=== PATIENT | male | born 1965 | race American Indian/Alaskan Native ===

== ENCOUNTER 2017-10-14 23:19 | Emergency (ER) | payer MEDICAID ==
[2017-10-14 23:41] VITALS: TEMP 98.3
--- NOTE | 2017-10-15 00:08 | ED PDOC ---
Arrival/HPI - General Chief Complaint: Back Pain Time Seen by Provider: 10/14/17 23:49 Historian: Patient - History of Present Illness Narrative History of Present Illness (Text): 10/15/17 23:54 A 52 year old male, whose past medical history includes diabetes (was type 2, now doctor no longer prescribing medications due to sugar levels getting better) , presents to the emergency department complaining of lower left-sided back pain on and off for 2-3 days. Patient reports taking pain medications for back stiffness and knee pain, but never had back pain in the past. When sitting still , patient does not experience any pain, however when moving or touching back, begins to feel pain. Patient denies any fever, nausea, vomiting, abdominal pain , appetite changes, dark urine, dysuria, urinary frequency, or any other complaints. No PMD Time/Duration: < week (2-3 days) Symptom Onset: Sudden Symptom Course: Unchanged Past Medical History - Provider Review Nursing Documentation Reviewed: Yes - Cardiac Hx Cardiac Disorders: No - Pulmonary Hx Respiratory Disorders: Yes Hx Asthma: Yes - Neurological Hx Neurological Disorder: No - HEENT Hx HEENT Disorder: No - Renal Hx Renal Disorder: No - Endocrine/Metabolic Hx Endocrine Disorders: Yes Hx Diabetes Mellitus Type 2: Yes (no longer on meds) - Hematological/Oncological Hx Blood Disorders: No - Integumentary Hx Dermatological Disorder: No - Musculoskeletal/Rheumatological Hx Musculoskeletal Disorders: No - Gastrointestinal Hx Gastrointestinal Disorders: No - Genitourinary/Gynecological Hx Genitourinary Disorders: No - Psychiatric Hx Psychophysiologic Disorder: No Hx Substance Use: No Family/Social History - Physician Review Nursing Documentation Reviewed: Yes Family/Social History: No Known Family HX Smoking Status: Never Smoked Hx Alcohol Use: No Hx Substance Use: No Allergies/Home Meds Allergies/Adverse Reactions: Allergies No Known Allergies Allergy (Verified 10/14/17 23:38) Home Medications: Home Meds Medication Instructions Recorded Confirmed Albuterol HFA [Ventolin HFA 90 2 puff IH PRN PRN 10/14/17 10/14/17 mcg/actuation (8 g)] Review of Systems - Physician Review All systems were reviewed & negative as marked: Yes - Review of Systems Constitutional: absent: Fevers Gastrointestinal: absent: Abdominal Pain, Nausea, Vomiting Genitourinary Male: absent: Dysuria, Frequency, Urinary Output Changes (no dark urine) Musculoskeletal: Back Pain (lower left-sided back pain) Physical Exam Vital Signs Reviewed: Yes Vital Signs Temp Pulse Resp BP Pulse Ox 10/15/17 03:00 81 17 128/79 97 10/14/17 23:39 98.3 F 85 16 120/75 96 Temperature: Afebrile Blood Pressure: Normal Pulse: Regular Respiratory Rate: Normal Appearance: Positive for: Other (morbidly obese) Pain Distress: None Mental Status: Positive for: Alert and Oriented X 3 - Systems Exam Respiratory/Chest: Present: Clear to Auscultation, Good Air Exchange. No: Respiratory Distress, Accessory Muscle Use Cardiovascular: Present: Regular Rate and Rhythm, Normal S1, S2. No: Murmurs Abdomen: Present: Normal Bowel Sounds. No: Tenderness, Distention, Peritoneal Signs, Rebound Back: Present: CVA Tenderness, Other (left flank tenderness; pain reproducable with palpation and twisting of the trunk) Medical Decision Making ED Course and Treatment: 10/15/17 23:59 Impression: 52 year old male with lower left-sided back pain. Physical exam shows patient appears morbidly obese; significant CVA tenderness, left flank tenderness, pain reproduced upon palpation and twisting of trunk; abdomen non- tender with no rebound; clear lungs; normal cardiac exam. Differential Diagnosis included but are not limited to: Musculoskeletal Back Pain vs. Renal Colic Plan: -- Abd/Pelvis CT -- Labs -- Toradol IV -- Urinalysis -- Reassess and disposition Progress Notes: 10/15/17 00:00 Patient has been prescribed 61 Tramadols since June 26. 10/15/2017 01:00 Abd/Pelvis CT IMPRESSION: 1. No definite CT evidence of urolithiasis. 2. Kidney lesion, indeterminate. Recommend nonemergent ultrasound or MRI. 3. Incidental/non-acute findings are described above. Dictator: Piter Rogers MD - Lab Interpretations Lab Results: 10/15/17 00:05 10/15/17 00:05 Lab Results 10/15/17 02:38: Urine Opiates Screen Negative, Urine Methadone Screen Negative, Ur Barbiturates Screen Negative, Ur Phencyclidine Scrn Negative, Ur Amphetamines Screen Negative, U Benzodiazepines Scrn Negative, U Oth Cocaine Metabols Negative, U Cannabinoids Screen Negative 10/15/17 02:38: Urine Color Yellow, Urine Appearance Clear, Urine pH 5.5, Ur Specific Amelia 1.025, Urine Protein Negative, Urine Glucose (UA) >=1000, Urine Ketones Negative, Urine Blood Negative, Urine Nitrate Negative, Urine Bilirubin Negative, Urine Urobilinogen 0.2, Ur Leukocyte Esterase Negative 10/15/17 00:05: Sodium 136, Potassium 4.5, Chloride 100, Carbon Dioxide 27, Anion Gap 13, BUN 16, Creatinine 1.1, Est GFR ( Amer) > 60, Est GFR (Non- Af Amer) > 60, Random Glucose 219 H, Calcium 9.4, Total Bilirubin 0.4, AST 26, ALT 31, Alkaline Phosphatase 78, Total Protein 7.7, Albumin 3.9, Globulin 3.8, Albumin/Globulin Ratio 1.0 L 10/15/17 00:05: WBC 6.7, RBC 5.29, Hgb 15.4, Hct 47.1, MCV 89.0, MCH 29.1, MCHC 32.7, RDW 14.1, Plt Count 133, MPV 12.8 H, Gran % 35.8 L, Lymph % (Auto) 52.1 H , [place] % (Auto) 9.7 H, Eos % (Auto) 2.1, Baso % (Auto) 0.3, Gran # 2.39, Lymph # 3.5 H, [place] # 0.7 H, Eos # 0.1, Baso # 0.02 I have reviewed the lab results: Yes - RAD Interpretation Radiology Orders: 10/14/17 23:59 ABD & PELVIS W/O PO OR IV CONT [CT] Stat - Medication Orders Current Medication Orders: Discontinued Medications Cyclobenzaprine HCl (Flexeril) 10 mg PO STAT STA Stop: 10/15/17 03:25 Last Admin: 10/15/17 03:35 Dose: 10 mg Ketorolac Tromethamine (Toradol) 30 mg IVP STAT STA Stop: 10/15/17 00:01 Last Admin: 10/15/17 00:09 Dose: 30 mg MAR Pain Assessment Document 10/15/17 00:09 YP (Rec: 10/15/17 00:09 YP [id number]) Pain Reassessment Is this a pain reassessment? No Sleep Is patient sleeping during reassessment? No Presence of Pain Presence of Pain Yes IVP Administration Document 10/15/17 00:09 YP (Rec: 10/15/17 00:09 YP [id number]) Charges for Administration # of IVP Administrations 1 Oxycodone/Acetaminophen (Percocet 5/325 Mg Tab) 2 tab PO STAT STA Stop: 10/15/17 03:25 Last Admin: 10/15/17 03:34 Dose: 2 tab MAR Pain Assessment Document 10/15/17 03:34 RD (Rec: 10/15/17 03:34 RD [id number]) Pain Reassessment Is this a pain reassessment? No Sleep Is patient sleeping during reassessment? No Presence of Pain Presence of Pain Yes - Scribe Statement The provider has reviewed the documentation as recorded by the [place] Provider Scribe Attestation: All medical record entries made by the Scribe were at my direction and personally dictated by me. I have reviewed the chart and agree that the record accurately reflects my personal performance of the history, physical exam, medical decision making, and the department course for this patient. I have also personally directed, reviewed, and agree with the discharge instructions and disposition. Disposition/Present on Arrival - Present on Arrival Any Indicators Present on Arrival: No History of DVT/PE: No History of Uncontrolled Diabetes: No Urinary Catheter: No History of Decub. Ulcer: No History Surgical Site Infection Following: None - Disposition Have Diagnosis and Disposition been Completed?: Yes Diagnosis: Back pain Disposition: HOME/ ROUTINE Disposition Time: 03:39 Patient Plan: Discharge Condition: GOOD Discharge Instructions (ExitCare): Acute Low Back Pain (ED) Print Language: LATVIAN Prescriptions: Cyclobenzaprine [Cyclobenzaprine HCl] 10 mg PO TID PRN #15 tab PRN Reason: pain Naproxen [Naprosyn] 500 mg PO BID #20 tablet Referrals: [facility] at [facility] – [place], [place] [Outside] - Follow up with primary Forms: [email or web address] (Dominican)
[2017-10-15 00:35] LABS: BASO # 0.02 K/mm3 (0.0-2.0); BASO % 0.3 % (0.0-3.0); EOS # 0.1 (0.0-0.7); EOS % 2.1 % (1.5-5.0); GRAN # 2.39 (1.4-6.5); GRAN % 35.8 % (50.0-68.0); HEMATOCRIT 47.1 % (42.0-52.0); LYMPH # 3.5 (1.2-3.4); LYMPH % 52.1 % (22.0-35.0); MEAN CORPUSCULAR HEMOGLOBIN 29.1 pg (25.0-35.0); MEAN CORPUSCULAR HGB CONC 32.7 g/dl (31.0-37.0); MEAN PLATELET VOLUME 12.8 fl (7.0-11.0); MONO # 0.7 (0.1-0.6); MONO % 9.7 % (1.0-6.0); RED CELL DISTRIBUTION WIDTH 14.1 % (11.5-14.5); WHITE BLOOD COUNT 6.7 10^3/ul (4.5-11.0)
[2017-10-15 00:37] LABS: ALKALINE PHOSPHATASE 78 U/L (38-126); ALT/SGPT 31 U/L (7-56); AST/SGOT 26 U/L (17-59); BILIRUBIN,TOTAL 0.4 mg/dL (0.2-1.3); BLOOD UREA NITROGEN 16 mg/dL (7-21); CALCIUM 9.4 mg/dL (8.4-10.5); CARBON DIOXIDE 27 mmol/L (21-33); CHLORIDE 100 mmol/L (98-107); GFR AFRICAN-AMERICAN > 60; GLUCOSE,RANDOM 219 mg/dL (70-110); POTASSIUM 4.5 mmol/L (3.6-5.0); SODIUM 136 mmol/L (132-148); TOTAL PROTEIN 7.7 g/dL (5.8-8.3)
--- NOTE | 2017-10-15 01:00 | CT ---
EXAM: CT Abdomen and Pelvis Without Intravenous Contrast CLINICAL HISTORY: 52 years old, male; Pain; Abdominal pain; Flank; Left; Prior surgery; Surgery type: Umbilical hernia repair as a kid. ; Additional info: Flank pain TECHNIQUE: Axial computed tomography images of the abdomen and pelvis without intravenous contrast. All CT scans at this facility use one or more dose reduction techniques, viz.: automated exposure control; ma/kV adjustment per patient size (including targeted exams where dose is matched to indication; i.e. head); or iterative reconstruction technique. Coronal and sagittal reformatted images were created and reviewed. COMPARISON: No relevant prior studies available. FINDINGS: Lower thorax: Minimal atelectasis/scarring. ABDOMEN: Liver: Unremarkable. Gallbladder and bile ducts: No calcified stones. No ductal dilation. Pancreas: Unremarkable. No ductal dilation. Spleen: No splenomegaly. Adrenals: No mass. Kidneys and ureters: Minimal stranding about kidneys, nonspecific. Few too small to characterize lesions within kidneys. 1.2 x 1.6 x 1.4 cm hyperdense lesion within LEFT kidney, indeterminate. No renal calculi. No hydronephrosis. Stomach and bowel: No definite mural thickening. No obstruction. Appendix: Normal caliber. No inflammation. PELVIS: Bladder: Unremarkable. No stones. Reproductive: Unremarkable as visualized. ABDOMEN and PELVIS: Intraperitoneal space: No significant fluid collection. No free air. Bones/joints: Mild degenerative changes of spine. Minimal curvature of spine. No acute fracture. Soft tissues: Unremarkable. Vasculature: Unremarkable. No aneurysm. Lymph nodes: No pathologically enlarged lymph nodes. IMPRESSION: 1. No definite CT evidence of urolithiasis. 2. Kidney lesion, indeterminate. Recommend nonemergent ultrasound or MRI. 3. Incidental/non-acute findings are described above.
[2017-10-15 03:04] LABS: PH,URINE 5.5 (4.7-8.0); URINE BILIRUBIN NEGATIVE (NEGATIVE); URINE BLOOD NEGATIVE (NEGATIVE); URINE GLUCOSE (UA) >=1000 mg/dL (NEGATIVE); URINE KETONE NEGATIVE (NEGATIVE); URINE LEUKOCYTE ESTERASE NEGATIVE Leu/uL (NEGATIVE); URINE PROTEIN NEGATIVE mg/dL (<30 mg/dL); URINE UROBILINOGEN 0.2 E.U./dL (<1 E.U./dL)
[2017-10-15 03:10] LABS: URINE APPEARANCE CLEAR (CLEAR); URINE COLOR YELLOW (YELLOW)
[2017-10-15] MEDS ORDERED: Oxycodone/Acetaminophen 5/325 mg Tab PO STA (03:24)
[2017-10-15 03:37] VITALS: BP 128/79; PULSE 81; RESP 17; O2SAT 97
== END 2017-10-15 03:35 | disposition home or self-care (01) ==
LOC: ED 23:19 → MERGE 23:19 → ED 10-15 03:35
DX: M54.5 Low back pain (principal); E11.9 Type 2 diabetes mellitus without complications
CPT/HCPCS: 74176; 80053; 80324; 80345; 80346; 80349; 80353; 80358; 80361; 81003; 83992; 85025; 96374; 99283; J1885